=== PATIENT | female | born 1985 | race Native Hawaiian/Other Pacific Islander ===

== ENCOUNTER 2018-12-20 07:42 | Outpatient (CLI) | payer BC | END 2018-12-20 23:16 | disposition home or self-care (01) | LOC: LABW 07:42 | DX: Z32.00 Encounter for pregnancy test, result unknown (principal) | CPT/HCPCS: 36415; 82670; 84144; 84702 ==

== ENCOUNTER 2018-12-23 07:04 | Outpatient (CLI) | payer BC | END 2018-12-23 22:42 | disposition home or self-care (01) | LOC: LABW 07:04 | DX: Z31.49 Encounter for other procreative investigation and testing (principal); O09.00 Supervision of pregnancy with history of infertility, unspecified trimester | CPT/HCPCS: 84702; 86900; 86901 ==

== ENCOUNTER 2020-10-05 12:34 | Outpatient (CLI) | payer BC | END 2020-10-05 19:42 | disposition home or self-care (01) | LOC: RAD 12:34 | PROVIDERS: ATTEND Nurse Practitioner Family | DX: M54.2 Cervicalgia (principal) ==

== ENCOUNTER 2022-01-10 07:38 | Outpatient (CLI) | payer OTHER | END 2022-01-10 19:26 | disposition home or self-care (01) | LOC: LABW 07:38 | PROVIDERS: ATTEND Obstetrics & Gynecology Reproductive Endocrinology | DX: Z32.00 Encounter for pregnancy test, result unknown (principal) | CPT/HCPCS: 36415; 82670; 84144; 84702 ==

== ENCOUNTER 2022-01-12 07:26 | Outpatient (CLI) | payer OTHER | END 2022-01-12 18:54 | disposition home or self-care (01) | LOC: LABW 07:26 | PROVIDERS: ATTEND Obstetrics & Gynecology Reproductive Endocrinology | DX: Z31.49 Encounter for other procreative investigation and testing (principal); O09.00 Supervision of pregnancy with history of infertility, unspecified trimester | CPT/HCPCS: 36415; 84702; 86850; 86900; 86901 ==

== ENCOUNTER 2022-01-14 08:58 | Outpatient (CLI) | payer OTHER | END 2022-01-14 20:59 | disposition home or self-care (01) | LOC: LABW 08:58 | PROVIDERS: ATTEND Obstetrics & Gynecology Reproductive Endocrinology | DX: O09.00 Supervision of pregnancy with history of infertility, unspecified trimester (principal) | CPT/HCPCS: 36415; 84702 ==

== ENCOUNTER 2022-01-16 07:51 | Outpatient (CLI) | payer OTHER | END 2022-01-16 18:57 | disposition home or self-care (01) | LOC: LABW 07:51 | PROVIDERS: ATTEND Obstetrics & Gynecology Reproductive Endocrinology | DX: O09.00 Supervision of pregnancy with history of infertility, unspecified trimester (principal) | CPT/HCPCS: 36415; 84702 ==

== ENCOUNTER 2022-01-20 07:52 | Outpatient (CLI) | payer OTHER | END 2022-01-20 20:24 | disposition home or self-care (01) | LOC: LABW 07:52 | PROVIDERS: ATTEND Obstetrics & Gynecology Reproductive Endocrinology | DX: Z32.00 Encounter for pregnancy test, result unknown (principal); O09.00 Supervision of pregnancy with history of infertility, unspecified trimester | CPT/HCPCS: 36415; 84702 ==

== ENCOUNTER 2022-03-20 07:44 | Outpatient (CLI) | payer OTHER | END 2022-03-20 18:54 | disposition home or self-care (01) | LOC: LABW 07:44 | PROVIDERS: ATTEND Obstetrics & Gynecology Reproductive Endocrinology | DX: Z32.00 Encounter for pregnancy test, result unknown (principal) | CPT/HCPCS: 36415; 82670; 84144; 84702 ==

== ENCOUNTER 2022-03-22 07:55 | Outpatient (CLI) | payer OTHER | END 2022-03-22 19:20 | disposition home or self-care (01) | LOC: LABW 07:55 | PROVIDERS: ATTEND Obstetrics & Gynecology Reproductive Endocrinology | DX: Z31.49 Encounter for other procreative investigation and testing (principal); O09.00 Supervision of pregnancy with history of infertility, unspecified trimester | CPT/HCPCS: 36415; 84702; 86850; 86900; 86901 ==

== ENCOUNTER 2022-04-28 07:51 | Outpatient (CLI) | payer OTHER | END 2022-04-28 22:07 | disposition home or self-care (01) | LOC: LABW 07:51 | PROVIDERS: ATTEND Obstetrics & Gynecology Reproductive Endocrinology | DX: Z32.00 Encounter for pregnancy test, result unknown (principal) | CPT/HCPCS: 36415; 84702 ==